=== PATIENT | female | born 1995 ===

== ENCOUNTER 2021-04-26 23:05 | Emergency (ER) | payer MEDICAID | END 2021-04-27 22:30 | disposition left against medical advice (07) | LOC: ED 23:05 | DX: O26.892 Other specified pregnancy related conditions, second trimester (principal); R10.9 Unspecified abdominal pain; Z53.21 Procedure and treatment not carried out due to patient leaving prior to being seen by health care provider; Z3A.17 17 weeks gestation of pregnancy ==